=== PATIENT | male | born 1955 | race Caucasian/White ===

== ENCOUNTER 2018-04-08 13:01 | Emergency (ER) | payer OTHER ==
[~2018-04-08] VITALS: Ht 167.6 cm; Wt 79.1 kg
[2018-04-08 13:40] LABS: BASOPHILS # (AUTO) 0.07 x10^3/uL (0-0.1); BASOPHILS % (AUTO) 1 % (0-1); EOSINOPHILS % (AUTO) 1 % (1-7); LYMPHOCYTES # (AUTO) 1.82 x10^3/uL (1-3.4); LYMPHOCYTES % (AUTO) 20 % (22-44); MD NO; MEAN CORPUSCULAR HEMOGLOBIN 34.6 pg (27.5-34.5); MEAN CORPUSCULAR HGB CONC 33.8 g/dL (33.2-36.2); MEAN CORPUSCULAR VOLUME 102.3 fL (81-97); MEAN PLATELET VOLUME 8.5 fL (7.4-10.4); MONOCYTES # (AUTO) 0.48 x10^3/uL (0.2-0.8); MONOCYTES % (AUTO) 5 % (2-9); NEUTROPHILS # (AUTO) 6.45 x10^3/uL (1.8-6.8); NEUTROPHILS % (AUTO) 72 % (42-75); PLATELET COUNT 333 x10^3/uL (130-400)
[2018-04-08 13:52] LABS: ALBUMIN 4.1 g/dL (3.4-5.0); ANION GAP 5 mmol/L (5-15); CALCIUM 9.3 mg/dL (8.5-10.1); CHLORIDE 106 mmol/L (98-107)
[2018-04-08 13:59] LABS: FREE T4 (FREE THYROXINE) 1.03 ng/dL (0.76-1.46); TROPONIN I < 0.015 ng/mL (0.000-0.045)
[2018-04-08 14:04] LABS: THYROID STIMULATING HORMONE 0.441 mIU/L (0.358-3.740)
--- NOTE | 2018-04-08 14:33 | NUR ---
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
[2018-04-08 16:29] VITALS: BP 132/67
== END 2018-04-08 16:31 | disposition home or self-care (01) ==
LOC: ED 16:15
DX: R07.2 Precordial pain (principal); I49.1 Atrial premature depolarization; F41.1 Generalized anxiety disorder; Z87.891 Personal history of nicotine dependence
CPT/HCPCS: 36415; 71045; 80048; 82040; 84439; 84443; 84484; 85025; 93005; 99284

== ENCOUNTER → 2018-06-15 | Outpatient (CLI) | payer OTHER ==
[~2018-06-15] MED LIST: REGADENOSON 0.4 MG/5 ML SYRINGE ONE
== END | disposition home or self-care (01) ==
LOC: CFH 08:20
PROVIDERS: ATTEND Nurse Practitioner Family
DX: R06.00 Dyspnea, unspecified (principal); R07.89 Other chest pain
CPT/HCPCS: 78452; 93017; A9502; J2785

== ENCOUNTER 2018-10-14 23:47 | Emergency (ER) | payer OTHER ==
[~2018-10-14] VITALS: Ht 167.6 cm; Wt 74.2 kg
[2018-10-15 02:30] VITALS: BP 103/59
== END 2018-10-15 02:32 | disposition home or self-care (01) ==
LOC: ED 10-15 00:44
DX: R25.1 Tremor, unspecified (principal); T50.905A Adverse effect of unspecified drugs, medicaments and biological substances, initial encounter; Y92.9 Unspecified place or not applicable
CPT/HCPCS: 36415; 80053; 85025; 99283

== ENCOUNTER 2019-03-17 10:15 | Outpatient (CLI) | payer OTHER ==
[~2019-03-17 10:15] MED LIST changes: +ALBU18HF INH; +ALFU10TA PO; +ALPR0.25 PO; +CETI10CA PO; +FLUT1AER INH; +FLUT9.9S NAS; +LURA20TA PO; +PANT40TA3 PO; -REGADENOSON 0.4 MG/5 ML SYRINGE ONE; +SIMV40TA3 PO
[2019-03-17] MEDS ORDERED: DEXL60CA2 PO (10:44)
[2019-03-17] MEDS ORDERED: BENZ2TAB6 PO (10:44)
[2019-03-17] MEDS ORDERED: LORA2TAB99 PO (10:44)
[2019-03-17] MEDS ORDERED: CBD PO (10:44)
[2019-03-17] MEDS ORDERED: DUTA0.5C PO (10:44)
[2019-03-17] MEDS ORDERED: FAMO-79 PO (10:44)
[2019-03-17] MEDS ORDERED: CYAN1TAB29 PO (11:02)
[2019-03-17] MEDS ORDERED: CHOL100011 PO (11:02)
[2019-03-17] MEDS ORDERED: MULT-658 PO (11:02)
[2019-03-17] MEDS ORDERED: VITA600C2 PO (11:02)
[2019-03-17 11:34] LABS: MICROSCOPIC NOT IND
[2019-03-17 11:42] LABS: CULTURE INDICATED? NO
== END 2019-03-17 23:59 | disposition home or self-care (01) ==
LOC: STAR 10:15
PROVIDERS: ATTEND Internal Medicine Geriatric Medicine
DX: Z01.818 Encounter for other preprocedural examination (principal); K22.70 Barrett's esophagus without dysplasia
CPT/HCPCS: 81003; 93005

== ENCOUNTER 2019-03-23 08:59 | Day surgery (SDC) | payer OTHER ==
[~2019-03-23] VITALS: Ht 167.6 cm; Wt 72.3 kg
[~2019-03-23 08:59] MED LIST changes: +BENZ2TAB6 PO; +CBD PO; +CHOL100011 PO; +CYAN1TAB29 PO; +DEXL60CA2 PO; +DUTA0.5C PO; +FAMO-79 PO; +LORA2TAB99 PO; +MULT-658 PO; +VITA600C2 PO
[2019-03-23] MEDS ORDERED: PROPOFOL 50 ML ONE (09:24)
[2019-03-23 09:29] VITALS: BP 91/58
[2019-03-23] MEDS ORDERED: FENTANYL PF 100 MCG/2ML IV PRN (09:30)
[2019-03-23] MEDS ORDERED: OXYcodone 5 MG/5 ML ORAL.SOL UDC PO PRN (09:30)
[2019-03-23] MEDS ORDERED: LORazepam 2 MG/ML, 1ML IVPush PRN (09:30)
[2019-03-23] MEDS ORDERED: ACETAMINOPHEN 325 MG TABLET PO PRN (09:30)
[2019-03-23] MEDS ORDERED: ONDANSETRON 2MG/ML, 2ML IV PRN (09:30)
[2019-03-23] MEDS ORDERED: LACTATED RINGERS 1,000 ML IV SCH ×2 (09:31)
[2019-03-23] MEDS ORDERED: MIDAZOLAM 1 MG/ML, 2ML ONE (09:41)
== END 2019-03-23 11:20 | disposition home or self-care (01) ==
LOC: OUT 08:59
PROVIDERS: ATTEND Internal Medicine Geriatric Medicine
DX: K31.89 Other diseases of stomach and duodenum (principal); J45.909 Unspecified asthma, uncomplicated; E03.9 Hypothyroidism, unspecified; F32.9 Major depressive disorder, single episode, unspecified; Z88.8 Allergy status to other drugs, medicaments and biological substances
CPT/HCPCS: 43237; J2250; J2704; J7120

== ENCOUNTER 2019-05-05 13:10 | Outpatient (CLI) | payer OTHER ==
[~2019-05-05 13:10] MED LIST changes: +SIMV40TA20 PO; -SIMV40TA3 PO
== END 2019-05-05 23:59 | disposition home or self-care (01) ==
LOC: STAR 13:10
PROVIDERS: ATTEND Psychiatry & Neurology Psychiatry
DX: Z01.810 Encounter for preprocedural cardiovascular examination (principal)
CPT/HCPCS: 93005

== ENCOUNTER → 2020-01-19 | Outpatient (CLI) | payer OTHER | END | disposition home or self-care (01) | LOC: CFH 08:49 | PROVIDERS: ATTEND Nurse Practitioner Family | DX: Z12.2 Encounter for screening for malignant neoplasm of respiratory organs (principal); R91.1 Solitary pulmonary nodule; F17.211 Nicotine dependence, cigarettes, in remission | CPT/HCPCS: G0297 ==

== ENCOUNTER 2020-08-29 14:40 | Outpatient (CLI) | payer MEDICARE ==
[2020-08-29] MEDS ORDERED: OMNIPAQUE 350 MG/ML, 100ML BOTTLE ONE (15:58)
== END 2020-08-29 23:59 | disposition home or self-care (01) ==
LOC: RAD 14:40
PROVIDERS: ATTEND Family Medicine
DX: D18.09 Hemangioma of other sites (principal); K57.30 Diverticulosis of large intestine without perforation or abscess without bleeding; R10.32 Left lower quadrant pain
CPT/HCPCS: 36415; 74177; 82565; Q9967